=== PATIENT | female | born 1950 | race Caucasian/White ===

== ENCOUNTER 2018-03-17 09:11 | Emergency (ER) | payer MEDICARE, BC ==
[2018-03-17] MEDS ORDERED: Sulfamethoxazole/Trimethoprim 800-160 MG Tab ONE (09:25)
--- NOTE | 2018-03-17 15:36 | ER ---
HISTORY OF PRESENT ILLNESS: The patient is a 68-year-old female who comes in with a 1-day history of dysuria, started yesterday. She does not have fever, chills, nausea, vomiting, or flank pain. She does have dysuria and frequency and does note blood-tinged urine. ALLERGIES: NKDA. CURRENT MEDICATIONS: Topical betamethasone, which she uses for scalp eczema; and she takes fish oil. Otherwise, no medications. PHYSICAL EXAMINATION: GENERAL: She is alert, oriented, no apparent distress. VITAL SIGNS: Pulse is 88, blood pressure is 101/66, O2 saturation is 100% on room air. The patient is afebrile. HEENT: Unremarkable. LUNGS: Clear. HEART: Regular. Sinus rhythm. ABDOMEN: Soft, nontender. No hepatosplenomegaly. No CVA tenderness. EXTREMITIES: No clubbing, cyanosis, or edema. LABORATORY DATA: UA shows greater than 100 red blood cells, greater than 100 white blood cells, 300 mg/dL of protein, and nitrite negative with many bacteria. ASSESSMENT: Uncomplicated cystitis. PLAN: I have put the patient on some Bactrim DS 1 p.o. b.i.d. x3 days. If she is not getting better within 24 to 48 hours, we would have return to clinic, and would change the antibiotic. REBEKAH /[id number]
== END 2018-03-17 09:50 | disposition home or self-care (01) ==
LOC: LB.ED 09:11
DX: N30.90 Cystitis, unspecified without hematuria (principal)
CPT/HCPCS: 81001; 99283; A9270